=== PATIENT | male | born 1960 | race Caucasian/White ===

== ENCOUNTER → 2016-09-18 | Outpatient (CLI) | payer MEDICARE, MEDICAID ==
[~2016-09-18] MED LIST: ATIVAN2 MG PO; NAPROSYN500 MG PO; ULTRAM50 MG PO
== END | disposition home or self-care (01) ==
LOC: ORTHO 03:23
DX: M25.512 Pain in left shoulder (principal); M25.522 Pain in left elbow; M43.22 Fusion of spine, cervical region

== ENCOUNTER 2018-12-24 19:38 | Emergency (ER) | payer MEDICARE, MEDICAID ==
[~2018-12-24] VITALS: Ht 177.8 cm; Wt 63.5 kg
--- NOTE | ~2018-12-24 | EKG ---
[place], [place] ELECTROCARDIOGRAM REPORT NAME: AMBREEN BLAKELY UNIT #: [id number] ROOM: DOCTOR: EPIPHANY DRAFT REPORT BIRTHDATE: [birth year] [facility] Test Date: 2018-12-24 Test Time: 19:55:59 Pat Name: AMBREEN BLAKELY Department: Room: Gender: Gift [employer] Manager: : 1960 Requested By: KARAN ANSARI DNP Order Number: [id number] Reading MD: Kenny Barajas MD Measurements Intervals [place] Rate: 77 P: 69 WI: 152 QRS: 68 QRSD: 84 T: 58 QT: 389 QTc: 441 Interpretive Statements Sinus rhythm Subtle inferior ST elevation Electronically Signed On 12-25-2018 8:05:17 PDT by Kenny Barajas MD CM:EKGRPT:ELECTROCARDIOGRAM REPORT [id number] KARAN ANSARI DNP EPIPHANY DRAFT REPORT KARAN ANSARI DNP
[2018-12-24 20:08] LABS: BASO # 0.1 10*3/uL (0.0-0.1); BASO % 1.7 % (0.0-1.0); EOS # 0.1 10*3/uL (0.0-0.4); EOS % 1.9 % (1.0-4.0); HEMATOCRIT 46.4 % (42.0-52.0); LYMPH % 37.1 % (27.0-41.0); MEAN CELL VOLUME 100.2 fl (80.0-94.0); MEAN CORPUSCULAR HGB 34.6 pg (27.0-31.0); MEAN CORPUSCULAR HGB CONC 34.5 g/dl (33.0-37.0); MEAN PLATELET VOLUME 8.6 fl (9.6-12.3); MONO # 0.7 10*3/uL (0.1-1.0); MONO % 13.8 % (3.0-9.0); NEUT # 2.4 10*3/uL (2.3-7.9); NEUT % 45.3 % (47.0-73.0); PLATELET COUNT AUTOMATED 153 10*3/uL (130-400); RED BLOOD COUNT 4.63 10*6/uL (4.50-5.90); RED CELL DISTRI WIDTH 12.7 % (0-14.5); WHITE BLOOD COUNT 5.3 10*3/uL (4.8-10.8)
[2018-12-24 20:23] LABS: ALBUMIN 3.3 gm/dl (3.1-4.5); ALKALINE PHOSPHATASE 93 U/L (45-117); BUN 5 mg/dl (7-24); CHLORIDE 105 mmol/L (98-107); CREATININE 0.65 mg/dL (0.70-1.30); LIPASE 231 U/L (73-393); POTASSIUM 3.9 mmol/L (3.5-5.1); SGOT/AST 75 IU/L (3-35); SGPT/ALT 78 U/L (12-78); SODIUM 136 mmol/L (136-145)
[2018-12-24 20:26] LABS: TROPONIN I < 0.015 ng/ml (<0.045)
[2018-12-24 20:41] LABS: ACT PARTIAL THROMBO TIME 25.1 SECONDS (20.0-32.1); INTERNATIONAL NORM RATIO 0.9 (2.0-3.5)
== END 2018-12-24 22:38 | disposition home or self-care (01) ==
LOC: ED 19:38
PROVIDERS: Nurse Practitioner Family
DX: F10.129 Alcohol abuse with intoxication, unspecified (principal); R42 Dizziness and giddiness; I10 Essential (primary) hypertension; F17.200 Nicotine dependence, unspecified, uncomplicated; Y90.8 Blood alcohol level of 240 mg/100 ml or more

== ENCOUNTER 2021-08-20 18:35 | Emergency (ER) | payer MEDICARE, MEDICAID ==
[~2021-08-20] VITALS: Wt 59.0 kg
[2021-08-20 20:07] LABS: BASO # 0.1 10*3/uL (0.0-0.1); BASO % 1.6 % (0.0-1.0); EOS % 0.9 % (1.0-4.0); HEMATOCRIT 45.8 % (42.0-52.0); LYMPH # 1.4 10*3/uL (1.3-4.4); LYMPH % 32.2 % (27.0-41.0); MEAN CELL VOLUME 98.3 fl (80.0-94.0); MEAN CORPUSCULAR HGB 34.1 pg (27.0-31.0); MEAN CORPUSCULAR HGB CONC 34.7 g/dl (33.0-37.0); MEAN PLATELET VOLUME 8.7 fl (9.6-12.3); MONO # 0.6 10*3/uL (0.1-1.0); MONO % 14.2 % (3.0-9.0); NEUT # 2.2 10*3/uL (2.3-7.9); NEUT % 50.9 % (47.0-73.0); PLATELET COUNT AUTOMATED 186 10*3/uL (130-400); RED BLOOD COUNT 4.66 10*6/uL (4.50-5.90); RED CELL DISTRI WIDTH 12.5 % (0-14.5); WHITE BLOOD COUNT 4.3 10*3/uL (4.8-10.8)
[2021-08-20 20:21] LABS: ALKALINE PHOSPHATASE 76 U/L (45-117); BUN 6 mg/dl (7-24); CHLORIDE 106 mmol/L (98-107); CREATININE 0.63 mg/dL (0.70-1.30); POTASSIUM 4.6 mmol/L (3.5-5.1); SGOT/AST 53 IU/L (3-35); SGPT/ALT 59 U/L (12-78); SODIUM 137 mmol/L (136-145)
== END 2021-08-20 20:45 | disposition left against medical advice (07) ==
LOC: ED 18:35
PROVIDERS: Emergency Medicine
DX: M79.651 Pain in right thigh (principal); R63.0 Anorexia; F17.200 Nicotine dependence, unspecified, uncomplicated

== ENCOUNTER → 2021-09-15 | Outpatient (CLI) | payer OTHER, MEDICAID | END | disposition home or self-care (01) | LOC: LAB 11:49 | PROVIDERS: ATTEND Nurse Practitioner Family | DX: M51.36 Other intervertebral disc degeneration, lumbar region (principal); M16.11 Unilateral primary osteoarthritis, right hip; Z72.0 Tobacco use; R63.4 Abnormal weight loss; R05.9 Cough, unspecified; R94.31 Abnormal electrocardiogram [ECG] [EKG] ==

== ENCOUNTER → 2021-09-19 | Outpatient (CLI) | payer OTHER, MEDICAID | END | disposition home or self-care (01) | LOC: CT 10:00 | PROVIDERS: ATTEND Nurse Practitioner Family | DX: R91.1 Solitary pulmonary nodule (principal); J43.2 Centrilobular emphysema; K76.0 Fatty (change of) liver, not elsewhere classified; I71.2 Thoracic aortic aneurysm, without rupture; I70.0 Atherosclerosis of aorta ==

== ENCOUNTER → 2021-09-27 | Outpatient (CLI) | payer OTHER, MEDICAID ==
[~2021-09-27] MED LIST changes: +IBUPROFEN600 MG PO; +VALIUM5 MG PO
== END | disposition home or self-care (01) ==
LOC: US 02:02
PROVIDERS: ATTEND Nurse Practitioner Family
DX: K76.89 Other specified diseases of liver (principal); K76.0 Fatty (change of) liver, not elsewhere classified

== ENCOUNTER → 2021-10-20 | Day surgery (SDC) | payer OTHER, MEDICAID ==
[~2021-10-20] VITALS: Ht 177.8 cm; Wt 59.0 kg
[2021-10-24 07:01] VITALS: BP 157/85
[2021-10-24 09:08] VITALS: BP 106/71
[2021-10-24 09:22] VITALS: BP 130/80
[2021-10-24 09:32] VITALS: BP 142/78
== END | disposition home or self-care (01) ==
LOC: SDC 01:37
PROVIDERS: ATTEND Surgery
DX: Z12.11 Encounter for screening for malignant neoplasm of colon (principal); K29.50 Unspecified chronic gastritis without bleeding; R94.5 Abnormal results of liver function studies; R19.7 Diarrhea, unspecified; R63.4 Abnormal weight loss; J43.9 Emphysema, unspecified; F17.210 Nicotine dependence, cigarettes, uncomplicated; F41.9 Anxiety disorder, unspecified; Z79.899 Other long term (current) drug therapy

== ENCOUNTER → 2021-10-24 | Outpatient (CLI) | payer OTHER, MEDICAID | END | disposition home or self-care (01) | LOC: RAD 10:30 | PROVIDERS: ATTEND Nurse Practitioner | DX: Z53.9 Procedure and treatment not carried out, unspecified reason (principal) ==

== ENCOUNTER 2021-12-06 22:21 | Emergency (ER) | payer OTHER, MEDICAID ==
[2021-12-06] MEDS ORDERED: VIBRA-TAB100 MG PO (22:51)
== END 2021-12-06 23:31 | disposition home or self-care (01) ==
LOC: ED 22:21
DX: L03.115 Cellulitis of right lower limb (principal)

== ENCOUNTER 2021-12-12 20:42 | Emergency (ER) | payer OTHER, MEDICAID ==
[~2021-12-12 20:42] MED LIST changes: +VIBRA-TAB100 MG PO
== END 2021-12-12 21:58 | disposition home or self-care (01) ==
LOC: ED 20:42
DX: M17.11 Unilateral primary osteoarthritis, right knee (principal); Z79.2 Long term (current) use of antibiotics

== ENCOUNTER → 2022-03-02 | Outpatient (CLI) | payer OTHER, MEDICAID ==
[2022-03-02 13:33] LABS: BASO # 0.1 10*3/uL (0.0-0.1); BASO % 1.4 % (0.0-1.0); EOS % 0.5 % (1.0-4.0); LYMPH # 1.1 10*3/uL (1.3-4.4); LYMPH % 19.5 % (27.0-41.0); MEAN CELL VOLUME 101.6 fl (80.0-94.0); MEAN CORPUSCULAR HGB 34.5 pg (27.0-31.0); MEAN PLATELET VOLUME 7.8 fl (9.6-12.3); MONO # 0.9 10*3/uL (0.1-1.0); MONO % 15.9 % (3.0-9.0); NEUT # 3.5 10*3/uL (2.3-7.9); NEUT % 62.5 % (47.0-73.0); PLATELET COUNT AUTOMATED 146 10*3/uL (130-400); RED BLOOD COUNT 4.43 10*6/uL (4.50-5.90); WHITE BLOOD COUNT 5.7 10*3/uL (4.8-10.8)
[2022-03-02 13:53] LABS: ALKALINE PHOSPHATASE 89 U/L (45-117); BUN 10 mg/dl (7-24); CHLORIDE 105 mmol/L (98-107); CHOLESTEROL 188 mg/dL (<200); CREATININE 0.75 mg/dL (0.70-1.30); LDL CHOLESTEROL 81 mg/dL (9-159); POTASSIUM 4.3 mmol/L (3.5-5.1); SGOT/AST 45 IU/L (3-35); SGPT/ALT 61 U/L (12-78); SODIUM 136 mmol/L (136-145); TOTAL PROTEIN 8.6 gm/dL (6.4-8.2); TRIGLYCERIDES 48 mg/dl (<150)
== END | disposition home or self-care (01) ==
LOC: LAB 13:07
PROVIDERS: ATTEND Nurse Practitioner Family
DX: E83.41 Hypermagnesemia (principal); D64.9 Anemia, unspecified; R89.9 Unspecified abnormal finding in specimens from other organs, systems and tissues; R79.89 Other specified abnormal findings of blood chemistry

== ENCOUNTER → 2022-04-20 | Outpatient (CLI) | payer OTHER, MEDICAID | END | disposition home or self-care (01) | LOC: MRI 01-20 13:00 | PROVIDERS: ATTEND Internal Medicine | DX: K76.0 Fatty (change of) liver, not elsewhere classified (principal); N28.1 Cyst of kidney, acquired ==

== ENCOUNTER 2022-10-12 15:39 | Inpatient (IN) | payer OTHER, MEDICAID ==
[~2022-10-12] VITALS: Ht 177.8 cm; Wt 71.7 kg
[2022-10-12 15:51] VITALS: BP 127/77
[2022-10-12 16:38] LABS: HEMATOCRIT 41.1 % (42.0-52.0); MEAN CELL VOLUME 103.3 fl (80.0-94.0); MEAN CORPUSCULAR HGB 34.9 pg (27.0-31.0); MEAN CORPUSCULAR HGB CONC 33.8 g/dl (33.0-37.0); MEAN PLATELET VOLUME 8.3 fl (9.6-12.3); PLATELET COUNT AUTOMATED 144 10*3/uL (130-400); RED BLOOD COUNT 3.98 10*6/uL (4.50-5.90); RED CELL DISTRI WIDTH 12.1 % (0-14.5); WHITE BLOOD COUNT 3.6 10*3/uL (4.8-10.8)
[2022-10-12 16:39] LABS: MANUAL DIFF REFLEX YES
[2022-10-12 16:42] LABS: ACT PARTIAL THROMBO TIME 26.8 SECONDS (20.0-32.1)
[2022-10-12 16:53] LABS: BASOPHILS 2 % (0-1); TOTAL CELLS COUNTED 100 #CELLS
[2022-10-12 16:54] LABS: ALKALINE PHOSPHATASE 82 U/L (46-116); BUN 6 mg/dl (9-23); CHLORIDE 99 mmol/L (98-107); ETHYL ALCOHOL 212.5 mg/dl (<3); PLATELET SUFFICIENCY NORMAL (NORMAL); POTASSIUM 3.9 mmol/L (3.4-5.1); SGPT/ALT 98 U/L (10-49); SPHEROCYTES FEW; TOTAL PROTEIN 7.6 gm/dL (6.0-8.0)
[2022-10-12 16:55] LABS: OVALOCYTES FEW
[2022-10-12] MEDS ORDERED: MECLIZINE HCL25 M2 PO (18:39)
[2022-10-12] MEDS ORDERED: ONDANSETRON HYDR4 MG PO (18:39)
[2022-10-12] MEDS ORDERED: INCRUSE ELLI62.5 MCG INH (18:41)
[2022-10-12] MEDS ORDERED: BUDESONIDE-FO10.2 G1 INH (20:02)
[2022-10-13 04:58] LABS: ACT PARTIAL THROMBO TIME 26.6 SECONDS (20.0-32.1)
[2022-10-13 05:15] LABS: ALKALINE PHOSPHATASE 78 U/L (46-116); BUN 6 mg/dl (9-23); CHLORIDE 105 mmol/L (98-107); CHOLESTEROL 157 mg/dL (<200); FREE T4 0.92 ng/dl (0.89-1.76); LDL CHOLESTEROL 75 mg/dL (9-159); POTASSIUM 4.5 mmol/L (3.4-5.1); SGPT/ALT 98 U/L (10-49); THYROID STIM HORMONE (HS) 2.453 uIU/ml (0.550-4.780); TOTAL PROTEIN 6.9 gm/dL (6.0-8.0); TRIGLYCERIDES 45 mg/dl (<150)
[2022-10-13 06:09] LABS: VITAMIN D, 25-HYDROXY 18.1 ng/mL (30-100)
[2022-10-13 06:22] LABS: HEMATOCRIT 41.8 % (42.0-52.0); MEAN CELL VOLUME 105.3 fl (80.0-94.0); MEAN CORPUSCULAR HGB CONC 33.3 g/dl (33.0-37.0); MEAN PLATELET VOLUME 8.4 fl (9.6-12.3); PLATELET COUNT AUTOMATED 129 10*3/uL (130-400); RED BLOOD COUNT 3.97 10*6/uL (4.50-5.90); RED CELL DISTRI WIDTH 12.2 % (0-14.5); WHITE BLOOD COUNT 3.4 10*3/uL (4.8-10.8)
[2022-10-13 06:24] LABS: MANUAL DIFF REFLEX YES
[2022-10-13 07:43] LABS: ATYPICAL LYMPHS 1 % (0-0); BASOPHILS 5 % (0-1); PLATELET SUFFICIENCY LOW (NORMAL); TOTAL CELLS COUNTED 100 #CELLS
[2022-10-13 07:44] VITALS: BP 136/72
== END 2022-10-13 10:31 | disposition left against medical advice (07) | DRG 894 ==
LOC: ED 15:39 → EDHOLD 18:32
PROVIDERS: Family Medicine; Student in an Organized Health Care Education/Training Program; ADMIT Internal Medicine; ATTEND Internal Medicine
DX: F10.930 Alcohol use, unspecified with withdrawal, uncomplicated (principal); E87.1 Hypo-osmolality and hyponatremia; E44.0 Moderate protein-calorie malnutrition; I10 Essential (primary) hypertension; J43.9 Emphysema, unspecified; Z53.29 Procedure and treatment not carried out because of patient's decision for other reasons; J32.0 Chronic maxillary sinusitis; J32.3 Chronic sphenoidal sinusitis; D53.9 Nutritional anemia, unspecified; R73.9 Hyperglycemia, unspecified; R74.01 Elevation of levels of liver transaminase levels; Z79.899 Other long term (current) drug therapy; Z87.891 Personal history of nicotine dependence

== ENCOUNTER → 2023-03-26 | Outpatient (CLI) | payer MEDICARE, MEDICAID ==
[~2023-03-26] MED LIST changes: +BUDESONIDE-FO10.2 G1 INH; +INCRUSE ELLI62.5 MCG INH; +MECLIZINE HCL25 M2 PO; +ONDANSETRON HYDR4 MG PO
[2023-03-26 11:25] LABS: BASO # 0.1 10*3/uL (0.0-0.1); BASO % 1.9 % (0.0-1.0); EOS % 1.1 % (1.0-4.0); HEMATOCRIT 38.7 % (42.0-52.0); LYMPH # 1.3 10*3/uL (1.3-4.4); LYMPH % 35.1 % (27.0-41.0); MEAN CORPUSCULAR HGB 31.9 pg (27.0-31.0); MEAN CORPUSCULAR HGB CONC 32.6 g/dl (33.0-37.0); MEAN PLATELET VOLUME 9.2 fl (9.6-12.3); MONO # 0.7 10*3/uL (0.1-1.0); MONO % 18.5 % (3.0-9.0); NEUT # 1.6 10*3/uL (2.3-7.9); NEUT % 43.1 % (47.0-73.0); PLATELET COUNT AUTOMATED 299 10*3/uL (130-400); RED BLOOD COUNT 3.95 10*6/uL (4.50-5.90); RED CELL DISTRI WIDTH 12.1 % (0-14.5); WHITE BLOOD COUNT 3.7 10*3/uL (4.8-10.8)
[2023-03-26 11:48] LABS: ALKALINE PHOSPHATASE 88 U/L (46-116); CHLORIDE 110 mmol/L (98-107); CHOLESTEROL 171 mg/dL (<200); LDL CHOLESTEROL 101 mg/dL (9-159); POTASSIUM 3.2 mmol/L (3.4-5.1); SGPT/ALT 32 U/L (5-49); TOTAL PROTEIN 7.5 gm/dL (6.0-8.0); TRIGLYCERIDES 78 mg/dl (<150)
[2023-03-26 11:49] LABS: BUN < 5 mg/dl (9-23)
== END | disposition home or self-care (01) ==
LOC: LAB 10:14
PROVIDERS: ATTEND Nurse Practitioner Family
DX: F10.11 Alcohol abuse, in remission (principal); K92.2 Gastrointestinal hemorrhage, unspecified; Z87.891 Personal history of nicotine dependence; Z79.899 Other long term (current) drug therapy

== ENCOUNTER → 2023-11-20 | Outpatient (CLI) | payer MEDICARE, MEDICAID ==
[2023-11-20 15:19] LABS: BASO # 0.1 10*3/uL (0.0-0.1); BASO % 1.1 % (0.0-1.0); EOS % 0.8 % (1.0-4.0); HEMATOCRIT 45.8 % (42.0-52.0); LYMPH # 1.8 10*3/uL (1.3-4.4); MEAN CELL VOLUME 102.2 fl (80.0-94.0); MEAN CORPUSCULAR HGB 35.3 pg (27.0-31.0); MEAN CORPUSCULAR HGB CONC 34.5 g/dl (33.0-37.0); MEAN PLATELET VOLUME 8.3 fl (9.6-12.3); MONO # 0.9 10*3/uL (0.1-1.0); MONO % 16.4 % (3.0-9.0); NEUT # 2.5 10*3/uL (2.3-7.9); NEUT % 47.5 % (47.0-73.0); PLATELET COUNT AUTOMATED 144 10*3/uL (130-400); RED BLOOD COUNT 4.48 10*6/uL (4.50-5.90); RED CELL DISTRI WIDTH 13.2 % (0-14.5); WHITE BLOOD COUNT 5.2 10*3/uL (4.8-10.8)
[2023-11-20 15:41] LABS: ALKALINE PHOSPHATASE 110 U/L (46-116); CHLORIDE 104 mmol/L (98-107); GAMMA GLUTAMYL TRANSPEPTIDASE 217 U/L (0-73); SGPT/ALT 86 U/L (5-49); TOTAL PROTEIN 7.1 gm/dL (6.0-8.0)
[2023-11-20 15:44] LABS: BUN < 5 mg/dl (9-23)
== END | disposition home or self-care (01) ==
LOC: LAB 15:05
PROVIDERS: ATTEND Nurse Practitioner
DX: F41.9 Anxiety disorder, unspecified (principal)